=== PATIENT | female | born 1980 | race Asian ===

== ENCOUNTER 2017-09-22 22:30 | Emergency (ER) | payer MEDICAID ==
[~2017-09-22] VITALS: Ht 160 cm; Wt 70.1 kg
[~2017-09-22 22:30] MED LIST: LACT1CAP26 PO; PANT-47 PO; SIMV20TA PO
[2017-09-22 23:49] LABS: BASOPHILS % (AUTO) 0.2 % (0-1); EOSINOPHILS # (AUTO) 0.2 X10'3 (0-0.9); EOSINOPHILS % (AUTO) 1.3 % (0-6); HEMOGLOBIN 13.5 g/dl (12.0-16.0); LYMPHOCYTES # (AUTO) 1.6 X10'3 (1.1-4.8); LYMPHOCYTES % (AUTO) 11.4 % (21-51); MEAN CORPUSCULAR HEMOGLOBIN 27.6 PG (27.0-31.0); MEAN CORPUSCULAR HGB CONC 33.8 % (33.0-36.5); MEAN CORPUSCULAR VOLUME 81.7 FL (78-98); MEAN PLATELET VOLUME 8.6 FL (7.4-10.4); MONOCYTES # (AUTO) 0.7 X10'3 (0-0.9); MONOCYTES % (AUTO) 4.7 % (2-12); NEUTROPHILS # (AUTO) 11.7 X10'3 (1.8-7.7); NEUTROPHILS % (AUTO) 82.4 % (42-75); PLATELET COUNT 270 X10'3 (140-440); RED CELL DISTRIBUTION WIDTH 16.4 % (11.5-14.5); WHITE BLOOD COUNT 14.2 X10'3 (4.5-11.0)
[2017-09-23 00:04] LABS: ALANINE AMINOTRANSFERASE 23 U/L (12-78); ALBUMIN 3.7 G/DL (3.4-5.0); ALBUMIN/GLOBULIN RATIO 0.8 (1.1-1.5); ALKALINE PHOSPHATASE 115 IU/L (46-116); ANION GAP 14 (8-16); ASPARTATE AMINO TRANSFERASE 18 U/L (10-37); BILIRUBIN,TOTAL 0.4 MG/DL (0.1-1.0); BLOOD UREA NITROGEN 16 MG/DL (7-18); BUN/CREATININE RATIO 19.8 (6.6-38.0); CALCIUM 9.1 MG/DL (8.5-10.1); CHLORIDE 101 MMOL/L (99-107); CREATININE 0.81 MG/DL (0.40-0.90); GLUCOSE 94 MG/DL (70-104); POTASSIUM 3.2 MMOL/L (3.5-5.1); SODIUM 137 MMOL/L (135-145); TOTAL CARBON DIOXIDE 21.8 MMOL/L (24-32); TOTAL PROTEIN 8.5 G/DL (6.4-8.2); eGFR 80 ML/MIN
[2017-09-23 00:26] LABS: PARTIAL THROMBOPLASTIN TIME 33 SECONDS (22-32)
[2017-09-23] MEDS ORDERED: levoFLOXACIN 500mg tablet PO ONE (02:15)
[2017-09-23] MEDS ORDERED: LEVO500T2 PO (02:16)
[2017-09-23 02:40] VITALS: BP 123/67
== END 2017-09-23 02:43 | disposition home or self-care (01) ==
LOC: ER 22:31
DX: J18.1 Lobar pneumonia, unspecified organism (principal); I10 Essential (primary) hypertension; E78.00 Pure hypercholesterolemia, unspecified; Z90.49 Acquired absence of other specified parts of digestive tract; Z91.018 Allergy to other foods; Z79.899 Other long term (current) drug therapy
CPT/HCPCS: 36415; 71045; 80053; 84484; 85025; 85610; 85730; 93005; 99285

== ENCOUNTER 2019-01-30 13:52 | Emergency (ER) | payer MEDICAID ==
[~2019-01-30] VITALS: Ht 165.1 cm; Wt 75.2 kg
[2019-01-30 14:04] VITALS: BP 141/90
[2019-01-30 14:24] LABS: BASOPHILS % (AUTO) 0.4 % (0-1); EOSINOPHILS # (AUTO) 0.2 X10'3 (0-0.9); EOSINOPHILS % (AUTO) 1.8 % (0-6); HEMATOCRIT 36.2 % (35.0-45.0); HEMOGLOBIN 11.9 g/dl (12.0-16.0); LYMPHOCYTES % (AUTO) 21.2 % (21-51); MEAN CORPUSCULAR HEMOGLOBIN 27.1 PG (27.0-31.0); MEAN CORPUSCULAR HGB CONC 32.8 g/dL (33.0-36.5); MEAN CORPUSCULAR VOLUME 82.6 FL (78-98); MEAN PLATELET VOLUME 7.2 FL (7.4-10.4); MONOCYTES # (AUTO) 0.6 X10'3 (0-0.9); MONOCYTES % (AUTO) 6.2 % (2-12); NEUTROPHILS # (AUTO) 6.5 X10'3 (1.8-7.7); NEUTROPHILS % (AUTO) 70.4 % (42-75); PLATELET COUNT 358 X10'3 (140-440); RED BLOOD COUNT 4.38 X10'6 (4.20-5.60); RED CELL DISTRIBUTION WIDTH 14.2 % (11.5-14.5); WHITE BLOOD COUNT 9.3 X10'3 (4.5-11.0)
[2019-01-30 15:39] LABS: CLARITY,URINE SLIGHTLY CLOUDY (Clear); COLOR,URINE YELLOW (Yellow); GLUCOSE, URINE NEGATIVE (Neg); KETONES,URINE NEGATIVE (Neg); LEUKOCYTE ESTERASE ,URINE NEGATIVE (Neg); NITRITES, URINE NEGATIVE (Neg); OCCULT BLOOD,URINE LARGE (Neg); PROTEIN,URINE 100 mg/dl (Neg); UROBILINOGEN,URINE 0.2 E.U/dL (0.2-1.0)
[2019-01-30 15:41] LABS: URINE HCG NEGATIVE (NEG)
[2019-01-30 15:47] LABS: UA COLLECTION TYPE CLN CATCH MIDSTREAM
[2019-01-30 15:49] LABS: BACTERIA,URINE 1+ /HPF (Neg); MUCUS STRANDS FEW /LPF (Neg); SQUAMOUS EPITHELIAL CELL,UR MODERATE /LPF (FEW); WBC,URINE 0-4 /HPF (0-4)
[2019-01-30 15:50] LABS: RBC,URINE 50-100 /HPF (0-2)
== END 2019-01-30 16:04 | disposition home or self-care (01) ==
LOC: ER 13:55
DX: N93.9 Abnormal uterine and vaginal bleeding, unspecified (principal); E78.00 Pure hypercholesterolemia, unspecified; I10 Essential (primary) hypertension; Z90.49 Acquired absence of other specified parts of digestive tract; Z91.018 Allergy to other foods; Z79.899 Other long term (current) drug therapy
CPT/HCPCS: 36415; 81001; 81025; 85025; 99283

== ENCOUNTER 2022-12-15 12:23 | Emergency (ER) | payer BC, MEDICAID ==
[~2022-12-15] VITALS: Ht 161.3 cm; Wt 75.0 kg
[~2022-12-15 12:23] MED LIST changes: +SIMV-342 PO; -SIMV20TA PO
[2022-12-15 12:53] LABS: CLARITY,URINE CLOUDY (Clear); COLOR,URINE YELLOW (Yellow); GLUCOSE, URINE NEGATIVE (Neg); KETONES,URINE NEGATIVE (Neg); LEUKOCYTE ESTERASE ,URINE NEGATIVE (Neg); NITRITES, URINE NEGATIVE (Neg); OCCULT BLOOD,URINE MODERATE (Neg); PROTEIN,URINE 100 mg/dl (Neg); UROBILINOGEN,URINE 0.2 E.U/dL (0.2-1.0)
[2022-12-15 12:55] LABS: UA COLLECTION TYPE CLN CATCH MIDSTREAM
[2022-12-15 13:09] LABS: URINE HCG NEGATIVE (NEG)
[2022-12-15 13:17] LABS: HYALINE CASTS 0-3 /LPF (NEGATIVE); SQUAMOUS EPITHELIAL CELL,UR MANY /LPF (FEW)
[2022-12-15 13:18] LABS: BACTERIA,URINE FEW /HPF (Neg); RBC,URINE 20-50 /HPF (0-2); WBC,URINE 0-4 /HPF (0-4)
[2022-12-15] MEDS ORDERED: ondansetron 4mg rapidly disintigrating tab PO ONE (13:45)
[2022-12-15] MEDS ORDERED: ketorolac trometh inj. 60 MG/2 ML VIAL IM ONE (13:45)
[2022-12-15] MEDS ORDERED: acetaminophen 325mg tablet PO ONE (13:45)
--- NOTE | 2022-12-15 14:10 | NUR ---
PT HAS COMPLAINT OF NUMBNESS AND TINGLING IN ALL FINGERS, SINCE YESTERDAY, WORSENING TODAY, PRESENTS TO BE EVALUATED
[2022-12-15 14:15] VITALS: BP 140/94
== END 2022-12-15 14:31 | disposition home or self-care (01) ==
LOC: ER 12:23
DX: G44.209 Tension-type headache, unspecified, not intractable (principal); R31.9 Hematuria, unspecified; I10 Essential (primary) hypertension; E78.00 Pure hypercholesterolemia, unspecified; Z90.49 Acquired absence of other specified parts of digestive tract; Z91.018 Allergy to other foods; Z79.899 Other long term (current) drug therapy
CPT/HCPCS: 81001; 81025; 96372; 99283; J1885

== ENCOUNTER 2023-02-04 11:00 | Day surgery (SDC) | payer BC, MEDICAID ==
[2023-02-02 16:14] LABS: BASOPHILS # (AUTO) 0.1 X10'3 (0-0.2); BASOPHILS % (AUTO) 0.8 % (0-1); EOSINOPHILS # (AUTO) 0.3 X10'3 (0-0.9); EOSINOPHILS % (AUTO) 3.5 % (0-6); HEMATOCRIT 42.8 % (35.0-45.0); HEMOGLOBIN 14.3 g/dl (12.0-16.0); LYMPHOCYTES # (AUTO) 2.6 X10'3 (1.1-4.8); LYMPHOCYTES % (AUTO) 27.6 % (21-51); MEAN CORPUSCULAR HEMOGLOBIN 30.3 PG (27.0-31.0); MEAN CORPUSCULAR HGB CONC 33.3 g/dL (33.0-36.5); MEAN CORPUSCULAR VOLUME 90.9 FL (78-98); MEAN PLATELET VOLUME 8.1 FL (7.4-10.4); MONOCYTES # (AUTO) 0.6 X10'3 (0-0.9); MONOCYTES % (AUTO) 6.6 % (2-12); NEUTROPHILS # (AUTO) 5.7 X10'3 (1.8-7.7); NEUTROPHILS % (AUTO) 61.5 % (42-75); PLATELET COUNT 301 X10'3 (140-440); RED CELL DISTRIBUTION WIDTH 13.3 % (11.5-14.5); WHITE BLOOD COUNT 9.2 X10'3 (4.5-11.0)
[2023-02-02 16:21] LABS: BILIRUBIN,URINE NEGATIVE (Neg); CLARITY,URINE SLIGHTLY CLOUDY (Clear); COLOR,URINE YELLOW (Yellow); GLUCOSE, URINE NEGATIVE (Neg); KETONES,URINE NEGATIVE (Neg); LEUKOCYTE ESTERASE ,URINE NEGATIVE (Neg); NITRITES, URINE NEGATIVE (Neg); OCCULT BLOOD,URINE MODERATE (Neg); PROTEIN,URINE 100 mg/dl (Neg); UROBILINOGEN,URINE 0.2 E.U/dL (0.2-1.0)
[2023-02-02 16:26] LABS: APTT 33 SECONDS (22-32); PROTHROMBIN TIME 10.3 SECONDS (9.0-12.0)
[2023-02-02 16:27] LABS: ALANINE AMINOTRANSFERASE 17 U/L (12-78); ALBUMIN 3.6 G/DL (3.4-5.0); ALBUMIN/GLOBULIN RATIO 0.8 (1.1-1.5); ALKALINE PHOSPHATASE 90 IU/L (46-116); ANION GAP 10 (8-16); ASPARTATE AMINO TRANSFERASE 10 U/L (10-37); BILIRUBIN,TOTAL 0.2 MG/DL (0.1-1.0); BLOOD UREA NITROGEN 29 MG/DL (7-18); BUN/CREATININE RATIO 21.6 (10.0-20.0); CALCIUM 9.9 MG/DL (8.5-10.1); CHLORIDE 105 MMOL/L (99-107); CREATININE 1.34 MG/DL (0.40-0.90); GLUCOSE 103 MG/DL (70-104); POTASSIUM 4.3 MMOL/L (3.5-5.1); SODIUM 135 MMOL/L (135-145); TOTAL CARBON DIOXIDE 20.1 MMOL/L (24-32); TOTAL PROTEIN 8.1 G/DL (6.4-8.2); eGFR 44 ML/MIN
[2023-02-02 16:29] LABS: UA COLLECTION TYPE CLN CATCH MIDSTREAM
[2023-02-02 16:33] LABS: HYALINE CASTS 0-3 /LPF (NEGATIVE); MUCUS STRANDS FEW /LPF (Neg); SQUAMOUS EPITHELIAL CELL,UR MANY /LPF (FEW)
[2023-02-02 16:34] LABS: BACTERIA,URINE 1+ /HPF (Neg); WBC,URINE 0-4 /HPF (0-4)
[2023-02-04] VITALS (19 sets, daily range): BP systolic 17–120; BP diastolic 63–83; PULSE 67–82; RESP 10–22; TEMP 98.3; O2SAT 93–100
[~2023-02-04] VITALS: Ht 160 cm; Wt 72.3 kg
[2023-02-04] MEDS ORDERED: CHOL50004 PO (12:06)
[2023-02-04] MEDS ORDERED: CYAN50009 PO (12:06)
[2023-02-04] MEDS ORDERED: ESCI-8 PO (12:06)
[2023-02-04] MEDS ORDERED: LORA10TA7 PO (12:06)
[2023-02-04] MEDS ORDERED: PRAV40TA3 PO (12:06)
[2023-02-04] MEDS ORDERED: BUSP10TA3 PO (12:06)
[2023-02-04] MEDS ORDERED: ACET-2006 PO (12:06)
[2023-02-04] MEDS ORDERED: LOSA100T58 PO (12:06)
[2023-02-04] MEDS ORDERED: GEMF600T89 PO (12:06)
[2023-02-04] MEDS ORDERED: LIDOcaine 1% 30ml preserv. free vial IJ STA (12:14)
[2023-02-04] MEDS ORDERED: MIDAZolam 1mg/ml 10ml vial IV ONE (12:15)
[2023-02-04 15:24] LABS: HEMATOCRIT 39.6 % (35.0-45.0); MEAN CORPUSCULAR HEMOGLOBIN 29.7 PG (27.0-31.0); MEAN CORPUSCULAR HGB CONC 32.9 g/dL (33.0-36.5); MEAN CORPUSCULAR VOLUME 90.3 FL (78-98); PLATELET COUNT 258 X10'3 (140-440); RED BLOOD COUNT 4.38 X10'6 (4.20-5.60); RED CELL DISTRIBUTION WIDTH 13.6 % (11.5-14.5); WHITE BLOOD COUNT 7.9 X10'3 (4.5-11.0)
[2023-02-04 17:25] LABS: HEMATOCRIT 38.7 % (35.0-45.0); HEMOGLOBIN 13.1 g/dl (12.0-16.0); MEAN CORPUSCULAR HGB CONC 33.8 g/dL (33.0-36.5); MEAN CORPUSCULAR VOLUME 88.8 FL (78-98); MEAN PLATELET VOLUME 8.3 FL (7.4-10.4); PLATELET COUNT 258 X10'3 (140-440); RED BLOOD COUNT 4.36 X10'6 (4.20-5.60); RED CELL DISTRIBUTION WIDTH 13.2 % (11.5-14.5); WHITE BLOOD COUNT 8.7 X10'3 (4.5-11.0)
== END 2023-02-04 17:50 | disposition home or self-care (01) ==
LOC: SSTAY O 11:00
PROVIDERS: ATTEND Internal Medicine Critical Care Medicine
DX: N18.30 Chronic kidney disease, stage 3 unspecified (principal); Z79.01 Long term (current) use of anticoagulants; Z79.899 Other long term (current) drug therapy
CPT/HCPCS: 36415; 50200; 76942; 80053; 81001; 85025; 85027; 85576; 85610; 85730; 86885; 86900; 86901; 86920; J2250; J3490; J7030; A4620; A6449